=== PATIENT | male | born 1945 | race Caucasian/White ===

== ENCOUNTER 2016-12-30 14:18 | Observation (INO) | payer MEDICARE ==
[~2016-12-30 14:18] MED LIST: BUSPAR10 MG PO; BUSPIRONE HCL15 M2 PO; CELEXA40 MG PO; GABAPENTIN300 M1 PO; HUMULIN N100 UNIT/2 SQ; IBUPROFEN600 M1 PO; IMDUR120 MG PO; LISINOPRIL10 MG PO; METOPROLOL TAR100 MG PO; NITROSTAT0.4 MG SL; NOVOLIN N100 U/ML SQ; NOVOLIN N100 UNIT/2 SC; NOVOLIN NPH; SLEEP AID PO; TRAZODONE HCL100 M1 PO; TRAZODONE100 MG PO; ZESTORETIC 10-1 EAC1 PO; ZOCOR80 M1 PO
[2016-12-30] MEDS ORDERED: DEPAKOTE ER500 M1 PO (14:34)
[2016-12-30] MEDS ORDERED: TRETINOIN TP (14:36)
[2016-12-30 15:52] LABS: BASO ABSOLUTE COUNT 0.1 tho/cmm (0.0-0.2); EOS % 0.9 % (0-7); EOSINOPHIL ABSOLUTE COUNT 0.1 tho/cmm (0.0-0.7); HCT-HEMATOCRIT 39.7 % (36.0-53.5); HGB-HEMOGLOBIN 13.7 gm/dl (13.5-17.0); IMMATURE GRANULOCYTES ABSOLUTE 0.04 tho/cmm (0-0.03); IMMATURE GRANULOCYTES PERCENT 0.3 % (0-0.3); LYMPH ABSOLUTE COUNT 4.7 tho/cmm (0.8-4.5); MCH (MEAN CORPUSCULAR HGB) 30.2 pg (28.0-32.0); MCHC MEAN CORPUSCULAR HGB CONC 34.5 % (32.0-36.0); MCV (MEAN CELL VOLUME) 87.6 fl (82.0-96.0); MEAN PLATELET VOLUME 10.2 cmc (9.4-12.4); MONO % 4.3 % (0-12); MONOCYTE ABSOLUTE COUNT 0.6 tho/cmm (0.0-1.2); NEUTROPHIL ABSOLUTE COUNT 8.2 tho/cmm (1.6-8.0); NEUTROPHIL-AUTOMATED 8.2 tho/cmm (1.6-8.0); NEUTROPHILS % 59.5 % (40-80); PLATELET COUNT 324 tho/cmm (150-450); RED BLOOD COUNT 4.53 mil/cmm (4.40-5.70); RED CELL DISTRIBUTION WIDTH 14.4 % (12.4-16.4); WHITE BLOOD COUNT 13.7 tho/cmm (4.0-10.0)
[2016-12-30 16:05] LABS: ANION GAP 19 mmol/L (0-20); BLOOD UREA NITROGEN 34 mg/dl (6-24); CALCIUM 8.8 mg/dl (8.5-10.5); CARBON DIOXIDE-VENOUS 20 mmol/L (22-32); CHLORIDE 103 mmol/l (96-110); CREATININE 1.49 mg/dl (0.60-1.30); GLUCOSE 140 mg/dL (70-110); POTASSIUM 4.9 mmol/L (3.7-5.1); SODIUM 137 mmol/L (135-145); eGFR VALUE FOR BLACK 54 mL/Min
== END 2016-12-31 10:56 | disposition left against medical advice (07) ==
LOC: EDMED 14:18 → EMR2 17:23 → CAR1 19:01
PROVIDERS: Emergency Medicine; Internal Medicine; ADMIT Internal Medicine Cardiovascular Disease
DX: R07.9 Chest pain, unspecified (principal); I10 Essential (primary) hypertension; E78.5 Hyperlipidemia, unspecified; R06.00 Dyspnea, unspecified; F32.9 Major depressive disorder, single episode, unspecified; I25.10 Atherosclerotic heart disease of native coronary artery without angina pectoris; I35.0 Nonrheumatic aortic (valve) stenosis; Z79.899 Other long term (current) drug therapy; F10.129 Alcohol abuse with intoxication, unspecified; Y90.8 Blood alcohol level of 240 mg/100 ml or more; Z88.8 Allergy status to other drugs, medicaments and biological substances; Z95.5 Presence of coronary angioplasty implant and graft
CPT/HCPCS: A9500; G0378; G0480; J2060; J2785; J3411; J7030